=== PATIENT | female | born 1975 | race Two or more races ===

== ENCOUNTER 2019-07-14 05:00 | Emergency (ER) | payer SELFPAY ==
[~2019-07-14] VITALS: Ht 162.6 cm; Wt 95.3 kg
[2019-07-14] MEDS ORDERED: KETOROLAC TROMETH 60MG/2ML VIAL IM ONE (06:00)
[2019-07-14 07:08] VITALS: BP 122/66
== END 2019-07-14 07:46 | disposition home or self-care (01) ==
LOC: ER 05:00
DX: M25.511 Pain in right shoulder (principal); S46.011D Strain of muscle(s) and tendon(s) of the rotator cuff of right shoulder, subsequent encounter; X58.XXXD Exposure to other specified factors, subsequent encounter
CPT/HCPCS: 29105; 73030; 93005; 96372; 99285; J1885